=== PATIENT | male | born 1955 | race Caucasian/White ===

== ENCOUNTER 2017-11-07 18:26 | Inpatient (IN) ==
[2017-11-07] MEDS ORDERED: 0.9 % SODIUM CHLORIDE 1,000 ML IV SCH (19:15)
--- NOTE | 2017-11-07 19:31 | XRay Report ---
CLINICAL INFORMATION: Shortness of breath fever and cough COMPARISON: 11/06/2017 FINDINGS: The heart size, mediastinum and pulmonary vessels are unremarkable. The lungs are clear. There are no effusions. The bones and soft tissues are within normal limits. IMPRESSION: Normal chest. Interpreted and Authenticated by: Caleb Marin 11/07/17
[2017-11-07 19:54] LABS: Basophils # (Auto) 0 K/mcL (0.0-0.3); Basophils % (Auto) 0 % (0.0-2.0); Eosinophils # (Auto) 0 K/mcL (0.0-0.7); Eosinophils % (Auto) 0.3 % (0.0-7.0); Granulocytes % (Auto) 90.8 % (38.0-78.0); Lymphocytes # (Auto) 0.4 K/mcL (1.5-4.8); Mean Cell Volume 87.9 fL (80.0-100.0); Mean Corpuscular HGB Conc 33.4 g/dL (31.0-36.0); Mean Corpuscular Hemoglobin 29.3 pg (26.0-34.0); Monocytes # (Auto) 0.8 K/mcL (0.1-0.9); Monocytes % (Auto) 5.9 % (1.0-12.0); Platelet Count 125 K/mcL (140-440); RBC 4.11 M/mcL (4.50-5.90); Red Cell Distribution Width 14.8 % (11.5-14.5)
[2017-11-07 19:59] LABS: Appearance,Urine CLEAR; Bacteria,Urine MANY /hpf (0); Bilirubin,Urine NEG (NEG); Color,Urine AMBER; Glucose,Urine (UA) NEGATIVE (NEG); Leukocyte Esterase,Urine NEG /uL (NEG); Mucus,Urine FEW /hpf (0); Protein,Urine NEG (NEG); Specific Gravity,Urine 1.019 (1.000-1.035); Urine Blood NEG mg/dL (<0.03); Urine Hyaline Cast 6 /lpf (0-2); Urine RBC < 1 /hpf (0-1); Urine Squamous Epithelial Cell 0 /hpf (0-4); Urine WBC 1 /hpf (0-4)
[2017-11-07 20:04] LABS: ALT/SGPT 24 U/l (0-40); Albumin 3.1 gm/dL (3.2-5.2); Albumin/Globulin Ratio 0.8 (1.0-2.3); Alkaline Phosphatase 133 U/L (39-117); Blood Urea Nitrogen 18 mg/dl (8-23); Lipase 89 U/L (7-60)
--- NOTE | 2017-11-07 20:37 | Emergency Department Note ---
Pediatric GI HPI - General Chief Complaint: Abdominal Pain Stated Complaint: Sent my Emilee Romero for infection in abd cavity. Time Seen by Provider: 11/07/17 18:32 Source: patient Mode of arrival: ambulatory Limitations: no limitations - History of Present Illness HPI narrative: Please disregard this note that was entered error and see new note - Related Data Home Medications Medication Instructions Recorded Confirmed Ferrous Gluconate [Iron] 236 mg PO DAILY 02/09/16 02/09/16 Furosemide [Lasix] 40 mg PO DAILY 02/09/16 02/09/16 Glucosamine Sulfate Dipot Chlr 1,000 mg PO 02/09/16 [Glucosamine] Omeprazole [PriLOSEC] 20 mg PO ACB 02/09/16 06/15/17 Propranolol [Inderal] 5 mg PO BID 02/09/16 06/15/17 Thiamine HCl [B-1] 200 mg PO DAILY 02/09/16 06/15/17 aMILoride [Amiloride] 10 mg PO BID 02/09/16 08/10/17 metFORMIN [Glucophage] 750 mg PO ACB 02/09/16 06/15/17 Allergies Allergy/AdvReac Type Severity Reaction Status Date / Time adhesive tape Allergy Severe Blister Verified 11/07/17 14:59 iron Allergy Diarrhea Verified 11/07/17 14:59 Tomato Allergy Numbness Verified 11/07/17 14:59 Pediatric Exam - General Limitations: no limitations Course Vital Signs Temperature 99.3 F H 11/07/17 18:27 Pulse Rate 106 H 11/07/17 18:27 Respiratory Rate 18 11/07/17 18:27 Blood Pressure 143/76 11/07/17 18:27 Pulse Oximetry (%) 95 11/07/17 18:27 Temperature 99.3 F H 11/07/17 18:27 Pulse Rate 106 H 11/07/17 18:27 Respiratory Rate 18 11/07/17 18:27 Blood Pressure 143/76 11/07/17 18:27 Pulse Oximetry (%) 95 11/07/17 18:27 Medical Decision Making - Lab Data Result diagrams: 11/07/17 18:59 11/07/17 18:59 Lab Results 11/07/17 11/07/17 11/07/17 Range/Units 18:47 18:59 18:59 WBC 12.9 H (4.5-11.0) K/mcL RBC 4.11 L (4.50-5.90) M/mcL Hgb 12.1 L (13.5-16.5) g/dL Hct 36.2 L (41.0-55.0) % MCV 87.9 (80.0-100.0) fL MCH 29.3 (26.0-34.0) pg MCHC 33.4 (31.0-36.0) g/dL RDW 14.8 H (11.5-14.5) % Plt Count 125 L (140-440) K/mcL MPV 9.4 (7.4-10.4) fL Gran % 90.8 H (38.0-78.0) % Lymph % (Auto) 3.0 L (15.5-49.0) % [place] % (Auto) 5.9 (1.0-12.0) % Eos % (Auto) 0.3 (0.0-7.0) % Baso % (Auto) 0 (0.0-2.0) % Gran # 11.7 H (1.8-8.0) K/mcL Lymph # (Auto) 0.4 L (1.5-4.8) K/mcL [place] # (Auto) 0.8 (0.1-0.9) K/mcL Eos # (Auto) 0 (0.0-0.7) K/mcL Baso # (Auto) 0 (0.0-0.3) K/mcL VBG Lactic Acid 2.3 H (0.5-2.2) mmol/L Sodium 126 L (133-145) mmol/L Potassium 4.5 (3.3-5.1) mmol/L Chloride 92 L (96-108) mmol/L Carbon Dioxide 18 L (22-30) mmol/L Anion Gap 16.0 (8-16) BUN 18 (8-23) mg/dl Creatinine 1.0 (0.7-1.2) mg/dl GFR Calculation 79 Glucose 112 H (70-105) mg/dL Calcium 8.2 L (8.6-10.4) mg/dl Total Bilirubin 2.0 H (0.0-1.0) mg/dL AST 36 (0-37) U/l ALT 24 (0-40) U/l Alkaline Phosphatase 133 H (39-117) U/L Total Protein 7.1 (5.9-8.4) gm/dL Albumin 3.1 L (3.2-5.2) gm/dL Globulin 4.0 H (2.2-3.7) gm/dL Albumin/Globulin Ratio 0.8 L (1.0-2.3) Lipase 89 H (7-60) U/L Urine Color Urine Appearance Urine pH Ur Specific [place] Urine Protein Urine Glucose (UA) Urine Ketones Urine Occult Blood Urine Nitrate Urine Bilirubin Urine Urobilinogen Ur Leukocyte Esterase Urine RBC (0-1) /hpf Urine WBC (0-4) /hpf Ur Squamous Epith Cells (0-4) /hpf Urine Bacteria (0) /hpf Hyaline Casts (0-2) /lpf Urine Mucus (0) /hpf Ur Culture Indicated? 11/07/17 11/07/17 Range/Units 19:07 19:07 WBC (4.5-11.0) K/mcL RBC (4.50-5.90) M/mcL Hgb (13.5-16.5) g/dL Hct (41.0-55.0) % MCV (80.0-100.0) fL MCH (26.0-34.0) pg MCHC (31.0-36.0) g/dL RDW (11.5-14.5) % Plt Count (140-440) K/mcL MPV (7.4-10.4) fL Gran % (38.0-78.0) % Lymph % (Auto) (15.5-49.0) % [place] % (Auto) (1.0-12.0) % Eos % (Auto) (0.0-7.0) % Baso % (Auto) (0.0-2.0) % Gran # (1.8-8.0) K/mcL Lymph # (Auto) (1.5-4.8) K/mcL [place] # (Auto) (0.1-0.9) K/mcL Eos # (Auto) (0.0-0.7) K/mcL Baso # (Auto) (0.0-0.3) K/mcL VBG Lactic Acid (0.5-2.2) mmol/L Sodium (133-145) mmol/L Potassium (3.3-5.1) mmol/L Chloride (96-108) mmol/L Carbon Dioxide (22-30) mmol/L Anion Gap (8-16) BUN (8-23) mg/dl Creatinine (0.7-1.2) mg/dl GFR Calculation Glucose (70-105) mg/dL Calcium (8.6-10.4) mg/dl Total Bilirubin (0.0-1.0) mg/dL AST (0-37) U/l ALT (0-40) U/l Alkaline Phosphatase (39-117) U/L Total Protein (5.9-8.4) gm/dL Albumin (3.2-5.2) gm/dL Globulin (2.2-3.7) gm/dL Albumin/Globulin Ratio (1.0-2.3) Lipase (7-60) U/L Urine Color TNP Lorie Urine Appearance TNP Clear Urine pH TNP 5.0 Ur Specific [place] TNP 1.019 Urine Protein TNP Neg Urine Glucose (UA) TNP Negative Urine Ketones TNP Neg Urine Occult Blood TNP Neg Urine Nitrate TNP Neg Urine Bilirubin TNP Neg Urine Urobilinogen TNP 4.0 A Ur Leukocyte Esterase TNP Neg Urine RBC < 1 (0-1) /hpf Urine WBC 1 (0-4) /hpf Ur Squamous Epith Cells 0 (0-4) /hpf Urine Bacteria Many A (0) /hpf Hyaline Casts 6 H (0-2) /lpf Urine Mucus Few (0) /hpf Ur Culture Indicated? Yes Disposition Pt seen by LINSEED OIL PRESS TENDER/PA only: No Clinical Impression: Peritonitis (acute) generalized Condition: Fair Referrals: Hang Patterson MD [Primary Care Provider] - Katherine Romero ARNP [Nurse Practitioner] -
[2017-11-07] MEDS ORDERED: cefTRIAXone 2 GM VIAL IV ONE (20:48)
--- NOTE | 2017-11-07 20:48 | Emergency Department Note ---
Abdominal Pain HPI - General Chief Complaint: Abdominal Pain Stated Complaint: Sent my Emilee Romero for infection in abd cavity. Time Seen by Provider: 11/07/17 18:32 Source: patient Mode of arrival: ambulatory Limitations: no limitations - History of Present Illness HPI Narrative: 62-year-old male presents with abdominal pain and fever. He was sent by Katherine Romero's office for probable peritonitis. About a week ago he had a paracentesis and had fluid drawn off. States last , about 6 days ago he started developing abdominal pain and a fever. Fever as high as 102 at home. He went and saw Katherine Romero today and they did another paracentesis and the fluid was cloudy. He has had a fever at that time. Culture and sensitivity are pending and that was verified with lab. States that he has had a nonproductive cough since last . States he has some mild shortness of breath which she frequently has. That is nothing new. He has had some intermittent nausea over the last few days. No vomiting or diarrhea. No rash. Associated symptoms: Reports: nausea, diarrhea, chills. Denies: vomiting, constipation, dysuria, hematuria, anorexia, syncope - Related Data Home Medications Medication Instructions Recorded Confirmed Ferrous Gluconate [Iron] 236 mg PO DAILY 02/09/16 02/09/16 Furosemide [Lasix] 40 mg PO DAILY 02/09/16 02/09/16 Glucosamine Sulfate Dipot Chlr 1,000 mg PO 02/09/16 [Glucosamine] Omeprazole [PriLOSEC] 20 mg PO ACB 02/09/16 06/15/17 Propranolol [Inderal] 5 mg PO BID 02/09/16 06/15/17 Thiamine HCl [B-1] 200 mg PO DAILY 02/09/16 06/15/17 aMILoride [Amiloride] 10 mg PO BID 02/09/16 08/10/17 metFORMIN [Glucophage] 750 mg PO ACB 02/09/16 06/15/17 Allergies Allergy/AdvReac Type Severity Reaction Status Date / Time adhesive tape Allergy Severe Blister Verified 11/07/17 14:59 iron Allergy Diarrhea Verified 11/07/17 14:59 Tomato Allergy Numbness Verified 11/07/17 14:59 Review of Systems All systems ED: reviewed and negative except as stated. Abdominal Pain PMH - Past Medical History PMFSH Narrative: Medical History Peritonitis (acute) generalized (Acute) Medical history: Reports: DM (II), GERD, other (cirrhosis liver, Liver Cancer, hx of alcoholism (quit 3.5 years ago)) Surgical history ED: Reports: other (knee sx, shoulder sx) - Social History Smoking status: Never smoker Alcohol use: Reports: None Drug use: Reports: none Physical Exam Limitations: no limitations General appearance: alert, in no apparent distress Head: atraumatic, normocephalic, normal inspection Eye: Present: normal appearance. Absent: conjunctival injection ENT: normal exam, normal oropharynx, mucous membranes moist, TM's normal bilaterally, normal external ear exam Neck: Present: normal inspection, trachea midline. Absent: tenderness, meningismus Chest: Present: normal inspection, symmetric chest wall rise Respiratory: Absent: normal lung sounds bilaterally, respiratory distress, wheezes, stridor, accessory muscle use Cardiovascular: Present: regular rate, normal heart sounds Abdominal: Present: soft, distention (Mild), tenderness (mild diffuse), normal bowel sounds. Absent: mass Extremities: Present: normal inspection. Absent: pedal edema Neurological: Present: alert, oriented X3 Psychiatric: Present: normal affect, normal mood Skin: Present: warm, dry, intact, normal color. Absent: rash, diaphoresis Course Course Narrative: @ 2044 spoke with hospitalist, Dr. Kan, who agrees to see and admit patient. Vital Signs Temperature 99.3 F H 11/07/17 18:27 Pulse Rate 106 H 11/07/17 18:27 Respiratory Rate 18 11/07/17 18:27 Blood Pressure 143/76 11/07/17 18:27 Pulse Oximetry (%) 95 11/07/17 18:27 Temperature 99.3 F H 11/07/17 18:27 Pulse Rate 106 H 11/07/17 18:27 Respiratory Rate 18 11/07/17 18:27 Blood Pressure 143/76 11/07/17 18:27 Pulse Oximetry (%) 95 11/07/17 18:27 Abdominal Pain - Lab Data Lab results reviewed: Yes I reviewed the patient's lab results. Result diagrams: 11/07/17 18:59 11/07/17 18:59 Lab Results 11/07/17 11/07/17 11/07/17 Range/Units 18:47 18:59 18:59 WBC 12.9 H (4.5-11.0) K/mcL RBC 4.11 L (4.50-5.90) M/mcL Hgb 12.1 L (13.5-16.5) g/dL Hct 36.2 L (41.0-55.0) % MCV 87.9 (80.0-100.0) fL MCH 29.3 (26.0-34.0) pg MCHC 33.4 (31.0-36.0) g/dL RDW 14.8 H (11.5-14.5) % Plt Count 125 L (140-440) K/mcL MPV 9.4 (7.4-10.4) fL Gran % 90.8 H (38.0-78.0) % Lymph % (Auto) 3.0 L (15.5-49.0) % [place] % (Auto) 5.9 (1.0-12.0) % Eos % (Auto) 0.3 (0.0-7.0) % Baso % (Auto) 0 (0.0-2.0) % Gran # 11.7 H (1.8-8.0) K/mcL Lymph # (Auto) 0.4 L (1.5-4.8) K/mcL [place] # (Auto) 0.8 (0.1-0.9) K/mcL Eos # (Auto) 0 (0.0-0.7) K/mcL Baso # (Auto) 0 (0.0-0.3) K/mcL VBG Lactic Acid 2.3 H (0.5-2.2) mmol/L Sodium 126 L (133-145) mmol/L Potassium 4.5 (3.3-5.1) mmol/L Chloride 92 L (96-108) mmol/L Carbon Dioxide 18 L (22-30) mmol/L Anion Gap 16.0 (8-16) BUN 18 (8-23) mg/dl Creatinine 1.0 (0.7-1.2) mg/dl GFR Calculation 79 Glucose 112 H (70-105) mg/dL Calcium 8.2 L (8.6-10.4) mg/dl Total Bilirubin 2.0 H (0.0-1.0) mg/dL AST 36 (0-37) U/l ALT 24 (0-40) U/l Alkaline Phosphatase 133 H (39-117) U/L Total Protein 7.1 (5.9-8.4) gm/dL Albumin 3.1 L (3.2-5.2) gm/dL Globulin 4.0 H (2.2-3.7) gm/dL Albumin/Globulin Ratio 0.8 L (1.0-2.3) Lipase 89 H (7-60) U/L Urine Color Urine Appearance Urine pH Ur Specific [place] Urine Protein Urine Glucose (UA) Urine Ketones Urine Occult Blood Urine Nitrate Urine Bilirubin Urine Urobilinogen Ur Leukocyte Esterase Urine RBC (0-1) /hpf Urine WBC (0-4) /hpf Ur Squamous Epith Cells (0-4) /hpf Urine Bacteria (0) /hpf Hyaline Casts (0-2) /lpf Urine Mucus (0) /hpf Ur Culture Indicated? 11/07/17 11/07/17 Range/Units 19:07 19:07 WBC (4.5-11.0) K/mcL RBC (4.50-5.90) M/mcL Hgb (13.5-16.5) g/dL Hct (41.0-55.0) % MCV (80.0-100.0) fL MCH (26.0-34.0) pg MCHC (31.0-36.0) g/dL RDW (11.5-14.5) % Plt Count (140-440) K/mcL MPV (7.4-10.4) fL Gran % (38.0-78.0) % Lymph % (Auto) (15.5-49.0) % [place] % (Auto) (1.0-12.0) % Eos % (Auto) (0.0-7.0) % Baso % (Auto) (0.0-2.0) % Gran # (1.8-8.0) K/mcL Lymph # (Auto) (1.5-4.8) K/mcL [place] # (Auto) (0.1-0.9) K/mcL Eos # (Auto) (0.0-0.7) K/mcL Baso # (Auto) (0.0-0.3) K/mcL VBG Lactic Acid (0.5-2.2) mmol/L Sodium (133-145) mmol/L Potassium (3.3-5.1) mmol/L Chloride (96-108) mmol/L Carbon Dioxide (22-30) mmol/L Anion Gap (8-16) BUN (8-23) mg/dl Creatinine (0.7-1.2) mg/dl GFR Calculation Glucose (70-105) mg/dL Calcium (8.6-10.4) mg/dl Total Bilirubin (0.0-1.0) mg/dL AST (0-37) U/l ALT (0-40) U/l Alkaline Phosphatase (39-117) U/L Total Protein (5.9-8.4) gm/dL Albumin (3.2-5.2) gm/dL Globulin (2.2-3.7) gm/dL Albumin/Globulin Ratio (1.0-2.3) Lipase (7-60) U/L Urine Color TNP Lorie Urine Appearance TNP Clear Urine pH TNP 5.0 Ur Specific [place] TNP 1.019 Urine Protein TNP Neg Urine Glucose (UA) TNP Negative Urine Ketones TNP Neg Urine Occult Blood TNP Neg Urine Nitrate TNP Neg Urine Bilirubin TNP Neg Urine Urobilinogen TNP 4.0 A Ur Leukocyte Esterase TNP Neg Urine RBC < 1 (0-1) /hpf Urine WBC 1 (0-4) /hpf Ur Squamous Epith Cells 0 (0-4) /hpf Urine Bacteria Many A (0) /hpf Hyaline Casts 6 H (0-2) /lpf Urine Mucus Few (0) /hpf Ur Culture Indicated? Yes - Radiology Data Radiology results reviewed: Yes I reviewed the patient's radiology results. Disposition Pt seen by BREAKER MACHINE OPERATOR/PA only: No Clinical Impression: Peritonitis (acute) generalized, Hyponatremia Disposition: Xfer As Inpt ([facility]) Condition: Fair Referrals: Katherine Romero ARNP [Nurse Practitioner] - Hang Patterson MD [Primary Care Provider] - Time of Disposition: 21:00
--- NOTE | 2017-11-07 21:41 | Internal Med History&Physical ---
Medical - H&P: [facility] Patient information: Note initiated : 11/07/17 at 9:38 pm Service Date, if different from initiated Date: [] Patient: Grant Perea 62 y/o M admitted on for Sent my Emilee Shipmanman for infection in abd cavity.. Chief Complaint: [] History of present illness: Mr. Perea is a 62 year old Male with h/o cirrhosis ,presents to the ER from [facility]. The patient has not been feeling well since last , pain in the abdomen lower abdomen, sharp, initially intermittent, then later constant and intermittent, progressively getting worse, somewhat better with drinking soda? no other reliving factors. He admits to poor appetite and nausea during these symptoms. The patient was seen by his GI doc, and a CT scan of the abdomen was done, which showed ascitis, the patient underwent a USG guided paracentesis today which showed SBP, and the patient was sent to the ER for further evaluation. The patient denies any other complaints, he does not have afrequent ascitic taps and notes that his fluid is well controleld with diet and diuretics. The patient in the ER had WBC of 12.9, sodium 126, lact 2.3, t eveline 2.0, the patient Total neutrophil count was [id number], the patient was therefore admitted to the hospital for further management. IV rocephin given in the ER. Blood and urine cx sent, since CT Abdomen was done yesterday, usg abdomen today, repeat imaging not done, CXR chest is neg. All systems: reviewed and no additional remarkable complaints except as stated ( as per HPI) Medical - H&P: PMH Medical history: Medical History Peritonitis (acute) generalized (Acute) Hyponatremia (Acute) cirrhosis liver cancer dm Surgical history: shoulder surgery in the past. Pertinent family history: father with DM, Cardiac issues, all male members seem to have DM Social history: lives with , retired non etoh now for 3.5 yrs, was heavy etoh user then smoker ex 13-15 pack yr Denies drug use. Medical - H&P: Meds Home Medications Medication Instructions Recorded Confirmed Type Ferrous Gluconate [Iron] 236 mg PO DAILY 02/09/16 02/09/16 History Furosemide [Lasix] 40 mg PO DAILY 02/09/16 02/09/16 History Glucosamine Sulfate Dipot Chlr 1,000 mg PO 02/09/16 History [Glucosamine] Omeprazole [PriLOSEC] 20 mg PO ACB 02/09/16 06/15/17 History Propranolol [Inderal] 5 mg PO BID 02/09/16 06/15/17 History Thiamine HCl [B-1] 200 mg PO DAILY 02/09/16 06/15/17 History aMILoride [Amiloride] 10 mg PO BID 02/09/16 08/10/17 History metFORMIN [Glucophage] 750 mg PO ACB 02/09/16 06/15/17 History Allergies Allergy/AdvReac Type Severity Reaction Status Date / Time adhesive tape Allergy Severe Blister Verified 11/07/17 14:59 iron Allergy Diarrhea Verified 11/07/17 14:59 Tomato Allergy Numbness Verified 11/07/17 14:59 Medical - H&P: Exam - Constitutional Vitals: Temp Pulse Resp BP Pulse Ox 99.3 F H 95 H 18 118/61 96 11/07/17 18:27 11/07/17 21:01 11/07/17 18:27 11/07/17 21:01 11/07/17 21:01 Exam: GENERAL: The patient is a well-developed, well-nourished in no apparent distress. Is alert and oriented x3. febrile VITAL SIGNS: Reviewed and as noted elsewhere. HEENT: Head is normocephalic and atraumatic. Extraocular muscles are intact. Pupils are equal, round, and reactive to light. Nares appeared normal. Mouth appears any without lesions. Mucous membranes are moist. NECK: Normal to inspection, Supple, No lymphadenopathy or thyromegaly. LUNGS: Air entry equal on both sides, no wheezing, crackles or rhonchi noted. No accessory muscles of respiration HEART: Regular rate and rhythm normal, S1 and S2 heard, no Gallop, S3 or Rub Noted, No Gross murmur heard. ABDOMEN: Soft, patch on the rlq from ascitic tap, some tendernes in hypogastric region, distended abvdomen with flank fullness, unbilical hernia Positive bowel sounds. EXTREMITIES: No cyanosis, clubbing, rash, lesions or edema. NEUROLOGIC: Cranial nerves II through XII are grossly intact. Motor and Sensory System Grossly Intact PSYCHIATRIC: flat affect, slow speech, poor eye contact. Denies SI or HI SKIN: No ulceration or wounds noted, No jaundice, No rash noted. Medical - H&P: Reslt - Labs CBC & Chem 7: 11/07/17 18:59 11/07/17 18:59 Labs: Short CBC 11/07/17 Range/Units 18:59 WBC 12.9 H (4.5-11.0) K/mcL Hgb 12.1 L (13.5-16.5) g/dL Hct 36.2 L (41.0-55.0) % Plt Count 125 L (140-440) K/mcL BMP 11/07/17 18:59 Sodium 126 L Potassium 4.5 Chloride 92 L Carbon Dioxide 18 L BUN 18 Creatinine 1.0 Glucose 112 H Calcium 8.2 L Liver Function 11/07/17 Range/Units 18:59 Total Bilirubin 2.0 H (0.0-1.0) mg/dL AST 36 (0-37) U/l ALT 24 (0-40) U/l Alkaline Phosphatase 133 H (39-117) U/L Albumin 3.1 L (3.2-5.2) gm/dL Urine 11/07/17 11/07/17 Range/Units 19:07 19:07 Urine Color TNP Lorie Urine Appearance TNP Clear Urine pH TNP 5.0 Ur Specific [place] TNP 1.019 Urine Protein TNP Neg Urine Glucose (UA) TNP Negative Medical - H&P: A/P - Narrative A/P Narrative: A/P spontaneous bacterial peritonitis: IV rocepin for now, cefotaxime not available in the hospital. 2gms q24hrs for now, total 5-7 days of abx planned. follow culture results. sepsis: due to above, lactic acid is 2.3, IVFluids for now, monitor and trend labs, bp is stable, hold beta blockers. Cirrhosis: Alcoholic cirrhosis, managed well by meds for now, monitor. does not dring etoh any more, now that he has HCC, may be a candidate for liver transplant, will see if this has been discussed with him Depression: agrees to being drepressed, but does not want any medications. DM: Hold / stop metformin, sliding scale insulin for now, alternative agent will need to be considered given he has cirrhosis. dvt hep sq diet regular full code.
[2017-11-07] MEDS ORDERED: NALOXONE HCL 0.4 MG/ML VIAL IV PRN (22:15)
[2017-11-07] MEDS ORDERED: HYDROmorphone 2 MG/ML VIAL IV PRN (22:15)
[2017-11-07] MEDS ORDERED: ACETAMINOPHEN 325 MG TABLET PO PRN (22:15)
[2017-11-07] MEDS ORDERED: ALBUTEROL SULFATE 2.5 MG/3 ML NEBULIZER NEB PRN (22:15)
[2017-11-07] MEDS: 0.9 % SODIUM CHLORIDE 1,000 ML IV SCH (22:27)
[2017-11-07] MEDS: 0.9 % SODIUM CHLORIDE 10 ML SYRINGE IV SCH (22:28)
[2017-11-07] MEDS: HEPARIN 5,000 UNIT/ML VIAL SQ SCH (23:04)
--- NOTE | 2017-11-08 01:30 | Emergency Department Note ---
ED Note Addendum Note Addendum: I saw this patient with Estefani MONTALVO. I agree with her evaluation, assessment, treatment and documentation. I also briefly discussed the patient with Dr. Lu prior to admittance
[2017-11-08] MEDS: 0.9 % SODIUM CHLORIDE 10 ML SYRINGE IV SCH ×3 (05:46→20:29)
[2017-11-08 05:58] LABS: Basophils # (Auto) 0 K/mcL (0.0-0.3); Basophils % (Auto) 0.1 % (0.0-2.0); Eosinophils # (Auto) 0 K/mcL (0.0-0.7); Eosinophils % (Auto) 0.1 % (0.0-7.0); Granulocytes % (Auto) 85.2 % (38.0-78.0); Lymphocytes # (Auto) 0.4 K/mcL (1.5-4.8); Mean Cell Volume 88.7 fL (80.0-100.0); Mean Corpuscular HGB Conc 33.7 g/dL (31.0-36.0); Mean Corpuscular Hemoglobin 29.9 pg (26.0-34.0); Monocytes % (Auto) 10.6 % (1.0-12.0); Platelet Count 90 K/mcL (140-440); RBC 3.58 M/mcL (4.50-5.90); Red Cell Distribution Width 14.4 % (11.5-14.5)
[2017-11-08 06:11] LABS: ALT/SGPT 20 U/l (0-40); Albumin 2.7 gm/dL (3.2-5.2); Albumin/Globulin Ratio 0.8 (1.0-2.3); Alkaline Phosphatase 128 U/L (39-117); Bilirubin,Direct 0.6 mg/dL (0.0-0.3); Blood Urea Nitrogen 15 mg/dl (8-23); Gamma Glutamyl Transpeptidase 62 U/L (8-61); Uric Acid 5.4 mg/dL (2.5-8.0)
[2017-11-08] MEDS: PANTOPRAZOLE 40 MG TABLET PO SCH (07:02)
[2017-11-08] MEDS: 0.9 % SODIUM CHLORIDE 1,000 ML IV SCH ×2 (08:50→19:19)
[2017-11-08] MEDS ORDERED: aMILoride 5 MG TABLET PO SCH (09:00)
[2017-11-08] MEDS ORDERED: FUROSEMIDE 40 MG TABLET PO SCH (09:00)
[2017-11-08] MEDS: cefTRIAXone 2 GM VIAL IV SCH (09:57)
[2017-11-08] MEDS: FERROUS GLUCONATE 324 MG TABLET PO SCH (09:59)
[2017-11-08] MEDS: THIAMINE 100 MG TABLET PO SCH (09:59)
[2017-11-08] MEDS: GLUCOSAMINE/CHONDROITIN SULF A 1 CAP CAPSULE PO SCH (10:00)
[2017-11-08] MEDS: DOCUSATE SODIUM 100 MG CAPSULE PO SCH ×2 (10:00→20:29)
[2017-11-08] MEDS: HEPARIN 5,000 UNIT/ML VIAL SQ SCH ×2 (10:01→20:25)
[2017-11-08] MEDS ORDERED: ONDANSETRON 4 MG/2 ML VIAL IV PRN (13:24)
--- NOTE | 2017-11-08 14:07 | Internal Med Progress Note ---
Medical - PN: Subj Patient information: Note initiated : 11/08/17 at 2:05 pm Service Date, if different from initiated Date: [] Patient: Grant Perea 62 y/o M admitted on 11/07/17 for Spontaneous Bacterial Peritonitis, Sepsis. Chief Complaint: [] Interval history: Mr. Perea is a 62 year old Male with h/o cirrhosis ,presents to the ER from [facility]. The patient has not been feeling well since last , pain in the abdomen lower abdomen, sharp, initially intermittent, then later constant and intermittent, progressively getting worse, somewhat better with drinking soda? no other reliving factors. He admits to poor appetite and nausea during these symptoms. The patient was seen by his GI doc, and a CT scan of the abdomen was done, which showed ascitis, the patient underwent a USG guided paracentesis today which showed SBP, and the patient was sent to the ER for further evaluation. The patient denies any other complaints, he does not have afrequent ascitic taps and notes that his fluid is well controleld with diet and diuretics. The patient in the ER had WBC of 12.9, sodium 126, lact 2.3, t eveline 2.0, the patient Total neutrophil count was 5388, the patient was therefore admitted to the hospital for further management. IV rocephin given in the ER. Blood and urine cx sent, since CT Abdomen was done yesterday, usg abdomen today, repeat imaging not done, CXR chest is neg. nov 08 Patient seen examined, no acute overnight issues, patient feeling much better, able to eat breakfast, labs better, microbiology pending, by bedside, all questions answered. Pertinent ROS: Denies headache, dizziness Denies chest pain, palpitations Denies cough or shortness of breath Denies abdominal pain, nausea or vomiting. - Constitutional Vitals: Vital Signs Temp Pulse Resp BP Pulse Ox 97.3 F 80 16 110/64 94 11/08/17 12:00 11/08/17 04:00 11/08/17 12:00 11/08/17 12:00 11/08/17 12:00 Period Temp Pulse Resp BP Sys/Rasmussen Pulse Ox Last 24 Hr 97.3 F-99.3 F 80-106 16- 94-143/53-76 92-96 Intake and Output 11/08/17 11/08/17 11/08/17 05:59 13:59 21:59 Intake Total 1250 / 1250 1240 / 1240 Output Total 725 / 725 175 / 175 Balance 525 / 525 1065 / 1065 Weight 226 lb 8 oz 226 lb 8 oz Patient Weight 11/09/17 05:59 Weight 226 lb 8 oz Intake & Output: Intake & Output 11/08/17 11/08/17 11/08/17 05:59 13:59 21:59 Intake Total 1250 / 1250 1240 / 1240 Output Total 725 / 725 175 / 175 Balance 525 / 525 1065 / 1065 Weight 226 lb 8 oz 226 lb 8 oz Intake: IV 1000 / 1000 1000 / 1000 Sodium Chloride 0.9% 1,000 ml @ 1000 / 1000 1000 / 1000 100 mls/hr IV .Q10H [facility] Rx#: [id number] Oral 250 / 250 240 / 240 Output: Void Amount 725 / 725 175 / 175 Other: Meal Breakfast Percent of Meal Consumed 100% Feeding Ability Assist with Tray Set Up # Voids 1 Exam: Constitutional; Afebrile, cooperative, alert, not in distress. Eyes- No icterus, , No periorbital swelling Ears- Ext ear normal, hearing normal to conversation. Neck- Midline trachea, supple Respiratory system: Air Entry equal on both sides, No crackles or wheezing, no rhonchi. CVS- Rate rhythm regular, S1,S2 heard, no gallop, no rub. Abdomen- Soft nontender abdomen, no organomegaly, no tenderness, no guarding or rigidity, SESSIONS CLERK- AOOx3, moving all extremities, no gross focal deficit noted. Medical - PN: Obj Da - Labs CBC & Chem 7: 11/08/17 04:25 11/08/17 04:25 Labs: Abnormal Lab Results 11/08/17 11/08/17 11/08/17 04:25 04:25 04:25 WBC RBC 3.58 L Hgb 10.7 L Hct 31.8 L RDW Plt Count 90 L Gran % 85.2 H Lymph % (Auto) 4.0 L Gran # 8.3 H Lymph # (Auto) 0.4 L [place] # (Auto) 1.0 H PT 18.0 H INR 1.4 H VBG Lactic Acid Sodium 131 L Chloride Carbon Dioxide 20 L Glucose 130 H Calcium 7.8 L Total Bilirubin 1.4 H Direct Bilirubin 0.6 H GGT 62 H Alkaline Phosphatase 128 H Albumin 2.7 L Globulin Albumin/Globulin Ratio 0.8 L Lipase Urine Urobilinogen Urine Bacteria Hyaline Casts 11/07/17 11/07/17 11/07/17 19:07 18:59 18:59 WBC 12.9 H RBC 4.11 L Hgb 12.1 L Hct 36.2 L RDW 14.8 H Plt Count 125 L Gran % 90.8 H Lymph % (Auto) 3.0 L Gran # 11.7 H Lymph # (Auto) 0.4 L [place] # (Auto) PT INR VBG Lactic Acid Sodium 126 L Chloride 92 L Carbon Dioxide 18 L Glucose 112 H Calcium 8.2 L Total Bilirubin 2.0 H Direct Bilirubin GGT Alkaline Phosphatase 133 H Albumin 3.1 L Globulin 4.0 H Albumin/Globulin Ratio 0.8 L Lipase 89 H Urine Urobilinogen 4.0 A Urine Bacteria Many A Hyaline Casts 6 H 11/07/17 18:47 WBC RBC Hgb Hct RDW Plt Count Gran % Lymph % (Auto) Gran # Lymph # (Auto) [place] # (Auto) PT INR VBG Lactic Acid 2.3 H Sodium Chloride Carbon Dioxide Glucose Calcium Total Bilirubin Direct Bilirubin GGT Alkaline Phosphatase Albumin Globulin Albumin/Globulin Ratio Lipase Urine Urobilinogen Urine Bacteria Hyaline Casts Meds: Medications Acetaminophen (Tylenol) 500 mg PO Q8HP PRN PRN Reason: PAIN/FEVER > 101 Albuterol Sulfate (Ventolin) 2.5 mg NEB Q2HP PRN PRN Reason: Shortness Of Breath Amiloride HCl (Amiloride) 10 mg PO BID [facility] Ceftriaxone Sodium (Rocephin) 2 gm IV Q24H [facility] Last Admin: 11/08/17 09:57 Dose: 2 gm Docusate Sodium (Colace) 100 mg PO BID [facility] Last Admin: 11/08/17 10:00 Dose: Not Given Ferrous Gluconate (Fergon) 324 mg PO [facility] Last Admin: 11/08/17 09:59 Dose: 324 mg Furosemide (Lasix) 40 mg PO DAILY [facility] Glucosamine/Chondroitin (Glucosamine-Chondroitin Cap) 1 cap PO DAILY [facility] Last Admin: 11/08/17 10:00 Dose: 1 cap Heparin Sodium (Porcine) (Heparin) 5,000 unit SQ Q12 [facility] Last Admin: 11/08/17 10:01 Dose: 5,000 unit Hydromorphone HCl (Dilaudid) 0.5 mg IV Q2HP PRN PRN Reason: PAIN LEVEL > 6 Sodium Chloride (Sodium Chloride 0.9%) 1,000 mls @ 100 mls/hr IV .Q10H [facility] Stop: 11/09/17 04:14 Last Admin: 11/08/17 08:50 Dose: 100 mls/hr Naloxone HCl (Narcan) 0.1 mg IV Q2MIN PRN PRN Reason: Opiate Reversal Ondansetron HCl (Zofran) 4 mg IV Q4HP PRN PRN Reason: Nausea And Vomiting Last Admin: 11/08/17 13:34 Dose: 4 mg Pantoprazole Sodium (Protonix) 40 mg PO QAMAC [facility] Last Admin: 11/08/17 07:02 Dose: 40 mg Sodium Chloride (Saline Flush) 10 ml IV Q8 [facility] Last Admin: 11/08/17 13:35 Dose: Not Given Thiamine HCl (Vitamin B1) 200 mg PO DAILY [facility] Last Admin: 11/08/17 09:59 Dose: 200 mg Medical - PN: A/P - Time Spent With Patient Total time spent is greater than 50% in coordination of care (as documented) at patient's floor/unit and/or counseling patient: - Narrative A/P Narrative: A/P Spontaneous bacterial peritonitis: IV rocepin for now, cefotaxime not available in the hospital. 2gms q24hrs for now, total 5-7 days of abx planned. follow culture results. sepsis: improving, wbc normal, now, lactic acidosis resolved, continue to treat underlying condition. Cirrhosis: Alcoholic cirrhosis, managed well by meds for now, monitor. does not drink etoh any more, now that he has HCC, may be a candidate for liver transplant. Depression: agrees to being depressed, but does not want any medications. DM: Hold / stop metformin, sliding scale insulin for now, alternative agent will need to be considered given he has cirrhosis. dvt hep sq diet regular full code. Medical - PN: Qual - VTE Deep Vein Thrombosis/Pulmonary Embolism Present on Admission: No
--- NOTE | 2017-11-08 17:18 | Internal Med Progress Note ---
Medical - PN: Subj Patient information: Note initiated : 11/08/17 at 5:15 pm Service Date, if different from initiated Date: [] Patient: Grant Perea a 62 y/o M now sober ETOH cirrhotic with portal hypertension, ascites, and slow growing HCC who admitted on 11/07/17 for Spontaneous Bacterial Peritonitis, Sepsis. Chief Complaint: [] Pt was seen in office 11/06 with abdominal pain and cough that prevented him from traveling for appointment with repair electric motor assembler Dr. Da Silva and interventional radiologist Dr. Andersen at [facility]. Outpatient CT was undertaken which revealed jejunitis, but ascites was seen. Paracentesis was done and fluid was hazy with 5300 nucleated cells 51% neutrophils. He was admitted with SBP and started on rocephin 11/07. Leukocytosis has improved and he is afebrile, but is complaining of nausea and abdominal pain. He is having recurrent ascites today. Notably, previous hepatology notes mention Grant has not been interested in liver transplant, but patient and now state he is. I am not sure if his HCC meets transplant criteria and will clarify this with Dr. Da Silva tomorrow. Pertinent ROS: see hpi - Constitutional Vitals: Vital Signs Temp Pulse Resp BP Pulse Ox 97.3 F 80 16 128/74 93 11/08/17 15:50 11/08/17 04:00 11/08/17 15:50 11/08/17 15:50 11/08/17 15:50 Period Temp Pulse Resp BP Sys/Rasmussen Pulse Ox Last 24 Hr 97.3 F-99.3 F 80-106 16-24 94-143/53-76 92-96 Intake and Output 11/08/17 11/08/17 11/08/17 05:59 13:59 21:59 Intake Total 1250 / 1250 1240 / 1240 Output Total 725 / 725 175 / 175 Balance 525 / 525 1065 / 1065 Weight 226 lb 8 oz 226 lb 8 oz Patient Weight 11/09/17 05:59 Weight 226 lb 8 oz Intake & Output: Intake & Output 11/08/17 11/08/17 11/08/17 05:59 13:59 21:59 Intake Total 1250 / 1250 1240 / 1240 Output Total 725 / 725 175 / 175 Balance 525 / 525 1065 / 1065 Weight 226 lb 8 oz 226 lb 8 oz Intake: IV 1000 / 1000 1000 / 1000 Sodium Chloride 0.9% 1,000 ml @ 1000 / 1000 1000 / 1000 100 mls/hr IV .Q10H [facility] Rx#: [id number] Oral 250 / 250 240 / 240 Output: Void Amount 725 / 725 175 / 175 Other: Meal Breakfast Percent of Meal Consumed 100% Feeding Ability Assist with Tray Set Up # Voids 1 General appearance: average body habitus, cooperative Exam: Flat affect with poor eye contact - Head Head exam: Present: atraumatic, normal inspection - Respiratory Respiratory exam: Present: normal respiratory exam - Cardiovascular Cardiovascular exam: Present: normal rate and rhythm. Absent: gallop, systolic murmur - GI/Abdominal GI/Abdominal exam: Present: normal bowel sounds, distended, hernia Additional comments: Reducible large umbilical hernia. TEnse ascites. Generalized abdominal tenderness. - Extremities Exam Extremities exam: Present: normal inspection, Foot pink and warm. Absent: pedal edema - Psychiatric Psychiatric exam: Present: depressed, flat affect Medical - PN: Obj Da - Labs CBC & Chem 7: 11/08/17 04:25 11/08/17 04:25 Labs: Abnormal Lab Results 11/08/17 11/08/17 11/08/17 04:25 04:25 04:25 WBC RBC 3.58 L Hgb 10.7 L Hct 31.8 L RDW Plt Count 90 L Gran % 85.2 H Lymph % (Auto) 4.0 L Gran # 8.3 H Lymph # (Auto) 0.[address] [facility] # (Auto) 1.0 H PT 18.0 H INR 1.4 H VBG Lactic Acid Sodium 131 L Chloride Carbon Dioxide 20 L Glucose 130 H Calcium 7.8 L Total Bilirubin 1.4 H Direct Bilirubin 0.6 H GGT 62 H Alkaline Phosphatase 128 H Albumin 2.7 L Globulin Albumin/Globulin Ratio 0.8 L Lipase Urine Urobilinogen Urine Bacteria Hyaline Casts 11/07/17 11/07/17 11/07/17 19:07 18:59 18:59 WBC 12.9 H RBC 4.11 L Hgb 12.1 L Hct 36.2 L RDW 14.8 H Plt Count 125 L Gran % 90.8 H Lymph % (Auto) 3.0 L Gran # 11.7 H Lymph # (Auto) 0.[address] [facility] # (Auto) PT INR VBG Lactic Acid Sodium 126 L Chloride 92 L Carbon Dioxide 18 L Glucose 112 H Calcium 8.2 L Total Bilirubin 2.0 H Direct Bilirubin GGT Alkaline Phosphatase 133 H Albumin 3.1 L Globulin 4.0 H Albumin/Globulin Ratio 0.8 L Lipase 89 H Urine Urobilinogen 4.0 A Urine Bacteria Many A Hyaline Casts 6 H 11/07/17 18:47 WBC RBC Hgb Hct RDW Plt Count Gran % Lymph % (Auto) Gran # Lymph # (Auto) [facility] # (Auto) PT INR VBG Lactic Acid 2.3 H Sodium Chloride Carbon Dioxide Glucose Calcium Total Bilirubin Direct Bilirubin GGT Alkaline Phosphatase Albumin Globulin Albumin/Globulin Ratio Lipase Urine Urobilinogen Urine Bacteria Hyaline Casts Meds: Medications Acetaminophen (Tylenol) 500 mg PO Q8HP PRN PRN Reason: PAIN/FEVER > 101 Albuterol Sulfate (Ventolin) 2.5 mg NEB Q2HP PRN PRN Reason: Shortness Of Breath Amiloride HCl (Amiloride) 10 mg PO BID [facility] Ceftriaxone Sodium (Rocephin) 2 gm IV Q24H [facility] Last Admin: 11/08/17 09:57 Dose: 2 gm Docusate Sodium (Colace) 100 mg PO BID [facility] Last Admin: 11/08/17 10:00 Dose: Not Given Ferrous Gluconate (Fergon) 324 mg [address] [facility] Last Admin: 11/08/17 09:59 Dose: 324 mg Furosemide (Lasix) 40 mg PO DAILY [facility] Glucosamine/Chondroitin (Glucosamine-Chondroitin Cap) 1 cap PO DAILY [facility] Last Admin: 11/08/17 10:00 Dose: 1 cap Heparin Sodium (Porcine) (Heparin) 5,000 unit SQ Q12 [facility] Last Admin: 11/08/17 10:01 Dose: 5,000 unit Hydromorphone HCl (Dilaudid) 0.5 mg IV Q2HP PRN PRN Reason: PAIN LEVEL > 6 Last Admin: 11/08/17 17:08 Dose: 0.5 mg Sodium Chloride (Sodium Chloride 0.9%) 1,000 mls @ 100 mls/hr IV .Q10H [facility] Stop: 11/09/17 04:14 Last Admin: 11/08/17 08:50 Dose: 100 mls/hr Naloxone HCl (Narcan) 0.1 mg IV Q2MIN PRN PRN Reason: Opiate Reversal Ondansetron HCl (Zofran) 4 mg IV Q4HP PRN PRN Reason: Nausea And Vomiting Last Admin: 11/08/17 13:34 Dose: 4 mg Pantoprazole Sodium (Protonix) 40 mg PO QAMAC [facility] Last Admin: 11/08/17 07:02 Dose: 40 mg Sodium Chloride (Saline Flush) 10 ml IV Q8 [facility] Last Admin: 11/08/17 13:35 Dose: Not Given Thiamine HCl (Vitamin B1) 200 mg PO DAILY [facility] Last Admin: 11/08/17 09:59 Dose: 200 mg Medical - PN: A/P - Time Spent With Patient Total time spent is greater than 50% in coordination of care (as documented) at patient's floor/unit and/or counseling patient: 15 - 24 minutes - Narrative A/P Narrative: SBP: Continue cephalosporin for at least 5 days. Should be discharged on Cipro 500mg daily for SBP prophylaxis. Avoid beta blockers and PPI. Inpatient care to be managed by hospitalist and patient will follow up with general GI on discharge and hepatology at [facility] when able to travel. Medical - PN: Qual - VTE Deep Vein Thrombosis/Pulmonary Embolism Present on Admission: No
[2017-11-08] MEDS: aMILoride 5 MG TABLET PO SCH (20:29)
[2017-11-09] MEDS: 0.9 % SODIUM CHLORIDE 10 ML SYRINGE IV SCH (05:19)
[2017-11-09 05:57] LABS: Basophils # (Auto) 0 K/mcL (0.0-0.3); Basophils % (Auto) 0.4 % (0.0-2.0); Eosinophils # (Auto) 0.1 K/mcL (0.0-0.7); Eosinophils % (Auto) 2.5 % (0.0-7.0); Granulocytes % (Auto) 74.4 % (38.0-78.0); Lymphocytes # (Auto) 0.4 K/mcL (1.5-4.8); Lymphocytes % (Auto) 8.9 % (15.5-49.0); Mean Cell Volume 88.9 fL (80.0-100.0); Mean Corpuscular HGB Conc 33.9 g/dL (31.0-36.0); Mean Corpuscular Hemoglobin 30.1 pg (26.0-34.0); Monocytes # (Auto) 0.6 K/mcL (0.1-0.9); Monocytes % (Auto) 13.8 % (1.0-12.0); Platelet Count 100 K/mcL (140-440); RBC 3.78 M/mcL (4.50-5.90); Red Cell Distribution Width 15.1 % (11.5-14.5)
[2017-11-09 06:09] LABS: ALT/SGPT 18 U/l (0-40); Albumin 2.5 gm/dL (3.2-5.2); Albumin/Globulin Ratio 0.8 (1.0-2.3); Alkaline Phosphatase 105 U/L (39-117); Bilirubin,Direct 0.4 mg/dL (0.0-0.3); Blood Urea Nitrogen 12 mg/dl (8-23); Gamma Glutamyl Transpeptidase 57 U/L (8-61); Uric Acid 5.2 mg/dL (2.5-8.0)
[2017-11-09] MEDS: PANTOPRAZOLE 40 MG TABLET PO SCH (07:38)
[2017-11-09] MEDS: FERROUS GLUCONATE 324 MG TABLET PO SCH (08:40)
[2017-11-09] MEDS: THIAMINE 100 MG TABLET PO SCH (08:41)
[2017-11-09] MEDS: GLUCOSAMINE/CHONDROITIN SULF A 1 CAP CAPSULE PO SCH (08:41)
[2017-11-09] MEDS: HEPARIN 5,000 UNIT/ML VIAL SQ SCH (08:41)
[2017-11-09] MEDS: aMILoride 5 MG TABLET PO SCH (08:41)
[2017-11-09] MEDS: cefTRIAXone 2 GM VIAL IV SCH (08:42)
[2017-11-09] MEDS ORDERED: VANCOMYCIN 1,500 MG in 0.9 % SODIUM CHLORIDE 500 ML IV SCH (09:00)
[2017-11-09] MEDS ORDERED: FUROSEMIDE 40 MG TABLET PO SCH (09:00)
[2017-11-09] MEDS: DOCUSATE SODIUM 100 MG CAPSULE PO SCH (09:04)
[2017-11-09] MEDS ORDERED: VANCOMYCIN PER PHARMACY IV SCH (09:42)
[2017-11-09] MEDS ORDERED: DEXTROSE 50% 50 ML VIAL IV PRN (11:52)
[2017-11-09] MEDS ORDERED: DEXTROSE 31 GM ORAL.SUSP PO PRN (11:52)
--- NOTE | 2017-11-09 13:07 | Discharge Summary ---
Medical - DS: Prov Patient information: Note initiated : 11/09/17 at 1:04 pm Service Date, if different from initiated Date: [] Patient: Grant Perea 62 y/o M admitted on 11/07/17 for Spontaneous Bacterial Peritonitis, Sepsis. Chief Complaint: [] Date of admission: 11/07/17 22:14 Discharge date: 11/09/17 Primary care physician: Hang Patterson Consults: 11/07/17 21:00 Consult to Physician [CONS] Stat Comment: Consulting Provider: Shirin Lu Reason For Exam: Physician to Consult Medical - DS: Meds - Discharge Medications Prescriptions: cefTRIAXone [Rocephin] 2 gm IV Q24H #3 vial Ciprofloxacin [Cipro] 500 mg PO DAILY #30 tab Active and Home Medications: Home Medications Furosemide [Lasix] 80 mg PO DAILY 02/09/16 [History Confirmed 11/08/17 Last Taken 11/07/17 09:00] Glucosamine Sulfate Dipot Chlr [Glucosamine] 1,000 mg PO BID 02/09/16 [History Confirmed 11/08/17 Last Taken 11/07/17 09:00] Thiamine HCl [B-1] 200 mg PO DAILY 02/09/16 [History Confirmed 11/08/17 Last Taken 11/07/17 09:00] aMILoride [Amiloride] 10 mg PO BID 02/09/16 [History Confirmed 11/08/17 Last Taken 11/07/17 09:00] metFORMIN [Glucophage] 500 mg PO BID 02/09/16 [History Confirmed 11/08/17 Last Taken 11/06/17 09:00] Ferrous Gluconate [Fergon] 324 mg PO Q48 11/08/17 [History Confirmed 11/08/17 Last Taken 11/08/17 10:00] Multivit-Min/FA/Vit K/Lycopene [Hm Mens 50+ Advanced One Daily] 1 tablet PO DAILY 11/08/17 [History Confirmed 11/08/17 Last Taken 11/07/17 09:00] Ciprofloxacin [Cipro] 500 mg PO DAILY #30 tab 11/09/17 [Rx Last Taken Unknown] cefTRIAXone [Rocephin] 2 gm IV Q24H #3 vial 11/09/17 [Rx Last Taken Unknown] Medical - DS: Hosp Hospital course: Discharge diagnosis BRIEF HOSPITAL COURSE Mr. Perea is a 62 year old Male with h/o cirrhosis ,presents to the ER from [facility]. The patient has not been feeling well since last , pain in the abdomen lower abdomen, sharp, initially intermittent, then later constant and intermittent, progressively getting worse, somewhat better with drinking soda? no other reliving factors. He admits to poor appetite and nausea during these symptoms. The patient was seen by his GI doc, and a CT scan of the abdomen was done, which showed ascitis, the patient underwent a USG guided paracentesis today which showed SBP, and the patient was sent to the ER for further evaluation. The patient denies any other complaints, he does not have afrequent ascitic taps and notes that his fluid is well controleld with diet and diuretics. The patient in the ER had WBC of 12.9, sodium 126, lact 2.3, t eveline 2.0, the patient Total neutrophil count was 5388, the patient was therefore admitted to the hospital for further management. IV rocephin given in the ER. Blood and urine cx sent, since CT Abdomen was done yesterday, usg abdomen today, repeat imaging not done, CXR chest is neg. nov 08 Patient seen examined, no acute overnight issues, patient feeling much better, able to eat breakfast, labs better, microbiology pending, by bedside, all questions answered. November 09-patient doing well. No overnight events. White count normalized to 4.5. Cultures negative so far. These at baseline and requesting discharge. Continue additional 3 days IV Rocephin followed by once a day ciprofloxacin 500 mg. Discharge instructions were discussed with patient including follow-up with GI. Hold propranolol/PPI as per GI recommendations. blood cultures coag- negative staph presumed contaminant. sodium at 134 bilirubin down from 2->0.9 discharging home Discharge diagnosis: . - Time Spent with Patient Total time spent providing and/or coordinating discharge services: Greater than 30 minutes Medical - DS: Exam - Constitutional Vitals: Vital Signs Temp Pulse Resp BP BP Pulse Ox 11/09/17 11:46 97.3 F 78 14 118/66 94 11/09/17 11:29 97.1 F 75 16 120/70 95 11/09/17 10:07 97.1 F 74 16 122/78 95 11/09/17 07:24 96.4 F L 74 16 108/70 94 11/09/17 04:00 97.9 F 66 14 128/72 93 11/08/17 23:39 97.5 F 71 12 122/68 96 11/08/17 19:07 97.7 F 80 16 132/76 93 11/08/17 15:50 97.3 F 16 128/74 93 Intake and Output 11/08/17 11/09/17 11/09/17 21:59 05:59 13:59 Intake Total 1840 / 1840 1250 / 1250 1000 / 1000 Output Total 350 / 350 350 / 350 250 / 250 Balance 1490 / 1490 900 / 900 750 / 750 Intake: IV 1000 / 1000 1000 / 1000 Sodium Chloride 0.9% 1,000 ml @ 1000 / 1000 1000 / 1000 100 mls/hr IV .Q10H [facility] Rx#: [id number] Oral 840 / 840 250 / 250 1000 / 1000 Output: Void Amount 350 / 350 350 / 350 250 / 250 Other: Meal Dinner Lunch Percent of Meal Consumed 100% 100% Feeding Ability Independent # Voids 1 # Bowel Movements 1 Weight 228 lb Medical - DS: Data Labs on day of discharge: Labs from last 24 hours 11/09/17 11/09/17 11/09/17 04:30 04:30 04:30 WBC 4.5 RBC 3.78 L Hgb 11.4 L Hct 33.6 L MCV 88.9 MCH 30.1 MCHC 33.9 RDW 15.1 H Plt Count 100 L MPV 8.9 Gran % 74.4 Lymph % (Auto) 8.9 L [place] % (Auto) 13.8 H Eos % (Auto) 2.5 Baso % (Auto) 0.4 Gran # 3.3 Lymph # (Auto) 0.4 L [place] # (Auto) 0.6 Eos # (Auto) 0.1 Baso # (Auto) 0 PT 17.6 H INR 1.4 H Sodium 134 Potassium 4.2 Chloride 100 Carbon Dioxide 21 L Anion Gap 13.0 BUN 12 Creatinine 0.7 GFR Calculation 100 Glucose 97 Uric Acid 5.2 Calcium 7.8 L Phosphorus 3.1 Magnesium 2.1 Total Bilirubin 0.9 Direct Bilirubin 0.4 H GGT 57 AST 26 ALT 18 Alkaline Phosphatase 105 Lactate Dehydrogenase 174 Total Protein 5.8 L Albumin 2.5 L Globulin 3.3 Albumin/Globulin Ratio 0.8 L Triglycerides 92 Preliminary micro results at discharge 11/07/17 18:47 Blood Culture - Preliminary Blood Coagulase negative staph 11/07/17 18:56 Blood Culture - Preliminary Blood 11/07/17 19:07 Urine Culture - Preliminary Urine - Clean Void [facility] Medical - DS: A/P - Patient/Caregiver Discharge Instructions Activity: increase activity as tolerated Diet: Low Sodium (2gm) Additional Instructions: Follow-up PCP in 5 days F/u GI as outpatient in 1 week I recommend primary care physician to check CBC CMP as a posthospital follow- up in 1 week. IV Rocephin for additional 3 days followed by ciprofloxacin 500 mg daily to continue for SBP prophylaxis hold PPI/propranolol until follow-up with GI Continue fall precaution Return to ER if worsening abdominal pain, distention, fever chills shortness of breath, diarrhea, bleeding Review risk and side effect profile of medications including antibiotics. Side effect may include mild to severe reaction including rash, diarrhea, cdiff and even which can be prevented by close follow-up with PCP and monitoring for side effects Continue low salt diet and activity as advised Discussed importance of medication adherence Please review medication list with patient prior to discharge Please schedule follow-up with PCP/Providers prior to discharge and provide printouts Portions of this chart may have been created with [employer] voice recognition software. Occasional wrong-word or ?sound-like? substitutions may have occurred due to the inherent limitations of voice recognition software. Please read the chart carefully and recognize, using context, where the substitutions have occurred. CC- PCP Prescriptions: cefTRIAXone [Rocephin] 2 gm IV Q24H #3 vial Ciprofloxacin [Cipro] 500 mg PO DAILY #30 tab - Follow up Plan Follow up with: Katherine Romero ARNP [Nurse Practitioner] - Hang Patterson MD [Primary Care Provider] - Disposition: Home, Self-Care Prognosis: Fair Rehab Potential: Fair I certify that the patient requires SNF services: No Overall status at discharge: patient is progressing back to baseline Medical - DS: Qual - VTE Deep Vein Thrombosis/Pulmonary Embolism Present on Admission: No
[2017-11-09] MEDS ORDERED: INSULIN LISPRO 1 UNIT/0.01 ML UNIT SQ SCH (17:00)
== END 2017-11-09 14:20 | disposition home or self-care (01) | DRG 871 ==
LOC: ED 18:26 → MEDSUR 22:14
PROVIDERS: ADMIT Internal Medicine; ATTEND Internal Medicine

== ENCOUNTER 2022-09-12 17:10 | Observation (INO) ==
[2022-09-12] MEDS ORDERED: KETOROLAC 60 MG/2 ML VIAL IM ONE (17:30)
--- NOTE | 2022-09-12 17:34 | Emergency Department Note ---
Lower Extremity Injury HPI General Chief Complaint: Extremity Injury, Lower Stated Complaint: left hip pain, slipped on ice Time Seen by Provider: 09/12/22 17:20 Source: patient Mode of arrival: wheelchair Limitations: no limitations History of Present Illness HPI Narrative: Narrative: 66-year-old male with a past medical history of diabetes mellitus on metformin and as below presents with sharp persistent severe 9/10 left hip pain. Pain goes away at rest but increases upon moving. Patient says that he slipped on ice and fell on his left hip. No other area of injury. No headache dizziness chest pain abdominal pain nausea vomiting diarrhea fever or chills Related Data Home Medications Medication Instructions Recorded Confirmed [id number] acid-vit 1 tab PO DAILY 11/08/17 09/12/22 K-lycop 400 mcg-20 mcg-370 mcg tablet (Men 50 Plus Advanced One Daily) glucos sul [id number]-Mn 2 cap PO QDAY 01/20/22 09/12/22 [Glucosamine Chondroitin] Previous Rx's Medication Instructions Recorded metformin 500 mg tablet 1,000 mg PO BID #360 tabs 08/11/22 hydrocodone 5 mg-acetaminophen 325 1 tab PO BID PRN pain #7 tabs 09/12/22 mg tablet hydrocodone 10 mg-acetaminophen 1 - 2 tab PO Q4H PRN Pain #60 tabs 09/13/22 325 mg tablet Allergies Allergy/AdvReac Type Severity Reaction Status Date / Time adhesive tape Allergy Severe Blister Verified 07/13/22 11:45 No Known Drug Intolerances Allergy Verified 09/12/22 21:12 iron AdvReac Mild Diarrhea Verified 07/13/22 11:45 Tomato AdvReac Mild Numbness, Verified 07/13/22 11:45 Rash Review of Systems ROS ROS Narrative: Narrative: All systems ED: reviewed and negative except as stated. Constitutional: Reports as per HPI PFSH Narrative Patient History Narrative: Narrative: Medical/Surgical/Family History All Active Problems (Updated 09/13/22 @ 05:53 by Davey Chirinos MD) History of liver cancer (Chronic) Diabetes mellitus, type II (Chronic) Alcoholic cirrhosis (Chronic) Umbilical hernia (Chronic) History of tobacco use (Chronic) Obese (Chronic) Cirrhosis of liver (Chronic) History of chemotherapy (Chronic ~2018) History of radiation therapy (Chronic ~2020) Medicare annual wellness visit, initial (Acute) Right knee pain (Acute) Systolic murmur (Chronic) Elevated PSA (Chronic) Asymptomatic microscopic hematuria (Acute) Asymptomatic bacteriuria (Acute) Callus of foot (Chronic) Abnormal TSH (Acute) Fall (Acute) Acute pain of left hip (Acute) Acetabulum fracture, left (Acute) Medical History Abnormal TSH Acute sinusitis Alcoholic cirrhosis Status post TI PS Asymptomatic bacteriuria Asymptomatic microscopic hematuria Callus of foot Cirrhosis of liver Diabetes mellitus, type II Elevated PSA Encounter for medication refill History of chemotherapy (~2018) [place] History of cirrhosis History of liver cancer History of TIPS 2017, tumor resection 10/05 History of radiation therapy (~2020) [place] History of tobacco use Quit 1992 Medicare annual wellness visit, initial Obese Right knee pain Systolic murmur Umbilical hernia Surgical History S/P TIPS (transjugular intrahepatic portosystemic shunt) (~03/19/18) [facility] Hernandes Family History Father Diabetes mellitus, type II Hypertension Social History Smoking Status: Former smoker Alcohol Intake Frequency: does not drink Substance Use: does not use Exam Narrative Narrative: Narrative: General Limitations: no limitations General appearance: Present alert and in no apparent distress Eye Eye: Present normal appearance Respiratory Respiratory: Present normal lung sounds bilaterally Cardiovascular Cardiovascular: Present regular rate, normal rhythm and normal heart sounds Adbominal Abdominal: Present soft and normal bowel sounds; Absent tenderness or organomegaly Extremities Extremities: Present other (Left hip tenderness which increases upon raising leg and Pen-[place]ee K down. No ecchymosis seen. Decreased range of motion of her left leg due to pain) Neurological Neurological: Present alert and oriented X3 Course Course Course Narrative: X-ray of the left hip was obtained. Toradol 30 mg IM was given. X-ray of the hip is negative for fracture, however patient still has severe pain. We will do CT without contrast of left hip for better evaluation. Care transferred to Dr. Chirinos Vital Signs Vital signs: Vital Signs Temperature 98.4 F 09/12/22 17:10 Pulse Rate 88 09/12/22 17:10 Respiratory Rate 20 09/12/22 17:10 Blood Pressure 138/64 09/12/22 17:10 Pulse Oximetry (%) 99 09/12/22 17:10 Oxygen Delivery Method 09/12/22 17:10 Temperature 98.6 F 09/13/22 03:23 Pulse Rate 86 09/13/22 03:23 Respiratory Rate 17 09/13/22 03:23 Blood Pressure 143/61 09/13/22 03:23 Pulse Oximetry (%) 99 09/13/22 03:23 Oxygen Delivery Method 09/13/22 03:23 MDM MDM Narrative Medical decision making narrative: Narrative: Discharge Plan Patient/Caregiver Discharge Instructions Pt seen by RESEARCH PROJECT COORDINATOR/PA only: No Clinical Impression: Fall, Acute pain of left hip Acetabulum fracture, left Qualifiers: Encounter type: initial encounter Sublocation of acetabulum: unspecified portion of acetabulum Fracture type: closed Fracture alignment: nondisplaced Qualified Code(s): S32.402A - Unspecified fracture of left acetabulum, initial encounter for closed fracture Activity: ambulate only with your walker and non-weight bearing Patient Disposition: Xfer As Outpt/Obs ([facility]) Condition: Fair Discharge Date/Time: 09/12/22 21:11 Discharge Location: [facility]
--- NOTE | 2022-09-12 18:20 | XRay Report ---
INDICATION: fall left hip pain TECHNIQUE: AP pelvis. Lateral right hip. Crosstable lateral left hip COMPARISON: None. FINDINGS: No detectable pelvic fracture. Sacrum is negative. No acute hip fracture identified. Hip joint spaces are bilaterally symmetric. Femoral heads and necks are intact. IMPRESSION: No detectable acute fracture Interpreted and Authenticated by: Caleb Orozco 09/12/22
[2022-09-12] MEDS ORDERED: HYDROmorphone 0.5 MG/0.5 ML SYRINGE IM ONE (18:30)
--- NOTE | 2022-09-12 18:53 | Cat Scan Report ---
INDICATION: L hip pain, unable to stand TECHNIQUE: Axial images through the pelvis. Sagittal and coronal reformatted images COMPARISON: Plain film examination dated 09/12/2022 FINDINGS: Nondisplaced fractures of the left inferior pubic ramus. Superior pubic ramus is intact. Nondisplaced left acetabular fracture fracture involves the anterior wall and roof. There is no displacement. Articular surface is nondisplaced without step-off. Femoral heads are negative and bilaterally symmetric. Femoral necks are negative. Sacrum is negative. No sacral fracture. Right hemipelvis is normal. Mild intrapelvic hematoma overlying the left acetabulum. IMPRESSION: 1. Nondisplaced fracture of the left inferior pubic ramus 2. Nondisplaced left acetabular fracture 3. Mild intrapelvic hematoma Interpreted and Authenticated by: Caleb Orozco 09/12/22
[2022-09-12] MEDS ORDERED: HYDROmorphone 0.5 MG/0.5 ML SYRINGE IV ONE (19:47)
[2022-09-12] MEDS: LACTATED RINGERS 1,000 ML IV SCH (20:10)
[2022-09-12] MEDS ORDERED: HYDROmorphone 0.5 MG/0.5 ML SYRINGE IV PRN (20:58)
[2022-09-12] MEDS ORDERED: HYDROcodone/APAP 5/325MG TABLET PO PRN (20:58)
[2022-09-12] MEDS ORDERED: ACETAMINOPHEN 325 MG TABLET PO PRN (20:58)
[2022-09-12] MEDS ORDERED: ONDANSETRON 4 MG/2 ML VIAL IV ONE (20:58)
[2022-09-12] MEDS ORDERED: DEXTROSE 50% 50 ML VIAL IV PRN (22:35)
[2022-09-12] MEDS ORDERED: DEXTROSE 31 GM ORAL.SUSP PO PRN (22:35)
[2022-09-12] MEDS: INSULIN LISPRO 1 UNIT/0.01 ML UNIT SQ SCH (22:44)
[2022-09-12] MEDS ORDERED: INSULIN LISPRO 1 UNIT/0.01 ML UNIT SQ ONE (22:52)
[2022-09-12] MEDS: metFORMIN 500 MG TABLET PO SCH (23:09)
--- NOTE | 2022-09-13 05:53 | Emergency Department Note ---
Course Vital Signs Vital signs: Vital Signs Temperature 98.4 F 09/12/22 17:10 Pulse Rate 88 09/12/22 17:10 Respiratory Rate 20 09/12/22 17:10 Blood Pressure 138/64 09/12/22 17:10 Pulse Oximetry (%) 99 09/12/22 17:10 Oxygen Delivery Method 09/12/22 17:10 Temperature 98.6 F 09/13/22 03:23 Pulse Rate 86 09/13/22 03:23 Respiratory Rate 17 09/13/22 03:23 Blood Pressure 143/61 09/13/22 03:23 Pulse Oximetry (%) 99 09/13/22 03:23 Oxygen Delivery Method 09/13/22 03:23 MDM MDM Narrative Medical decision making narrative: Narrative: Patient found to have left acetabular fracture and left inferior pubic rami fracture. I did speak with Dr. Toledo they are likely nonoperative injuries. He will admit the patient for pain control and therapy evaluation. Discharge Plan Patient/Caregiver Discharge Instructions Pt seen by DUMP GROUNDS CHECKER/PA only: No Clinical Impression: Fall, Acute pain of left hip, Acetabulum fracture, left Activity: non-weight bearing Patient Disposition: Xfer As Outpt/Obs ([facility]) Condition: Fair Discharge Date/Time: 09/12/22 21:11 Discharge Location: [facility]
[2022-09-13] MEDS: metFORMIN 500 MG TABLET PO SCH (07:25)
[2022-09-13] MEDS: INSULIN LISPRO 1 UNIT/0.01 ML UNIT SQ SCH ×2 (07:25→11:36)
[2022-09-13] MEDS: LACTATED RINGERS 1,000 ML IV SCH (07:25)
== END 2022-09-13 14:34 | disposition home or self-care (01) ==
LOC: ED 17:10 → MEDSUR 21:11 → INTOOBSV 21:11
PROVIDERS: ADMIT Orthopaedic Surgery; ATTEND Orthopaedic Surgery

== ENCOUNTER 2024-08-21 08:25 | Inpatient (IN) ==
[2024-08-21] MEDS ORDERED: IOPAMIDOL 100 ML BOTTLE IV ONE (08:26)
[2024-08-21 09:32] LABS: Basophils # (Auto) 0.02 K/mcL (0.00-0.30); Basophils % (Auto) 0.7 % (0.0-2.0); Eosinophils # (Auto) 0.06 K/mcL (0.00-0.70); Hemoglobin 14.6 g/dL (13.7-17.5); Lymphocytes # (Auto) 0.64 K/mcL (1.50-4.80); Lymphocytes % (Auto) 21.8 % (15.5-49.0); Mean Cell Volume 100.9 fL (80.0-100.0); Mean Corpuscular HGB Conc 33.2 g/dL (31.0-36.0); Mean Platelet Volume 10.8 fL (8.8-12.5); Monocytes # (Auto) 0.29 K/mcL (0.10-0.90); Monocytes % (Auto) 9.9 % (1.0-12.0); Neutrophils % (Auto) 65.6 % (38.0-78.0); Platelet Count 110 K/mcL (140-440); RBC 4.36 M/mcL (4.63-6.08); Red Cell Distribution Width 14.1 % (11.5-14.5); WBC 2.9 K/mcL (4.5-11.0)
[2024-08-21 09:48] LABS: INR 1.2 (0.9-1.1); Prothrombin Time 15.2 sec (11.9-14.5)
[2024-08-21 09:49] LABS: Partial Thromboplastin Time 30.7 sec (20.0-37.0)
[2024-08-21 10:22] LABS: ALT/SGPT 37 U/L (<40); AST/SGOT 80 U/L (<40); Albumin 3.5 gm/dL (3.2-5.2); Albumin/Globulin Ratio 0.9 (1.0-2.3); Alkaline Phosphatase 187 U/L (39-117); Bilirubin,Total 1.7 mg/dL (0.1-1.0); Blood Urea Nitrogen 13 mg/dL (8-23); Calcium 9.1 mg/dL (8.6-10.4); Carbon Dioxide 21 mmol/L (22-30); Chloride 107 mmol/L (96-108); Globulin 4.1 gm/dL (2.2-3.7); Glomerular Filtration Rate 95; Glucose 150 mg/dL (70-105); Potassium 3.7 mmol/L (3.3-5.1); Sodium 141 mmol/L (133-145)
[2024-08-21] MEDS: LIDOCAINE 2% URO-JET 10 ML JEL.PF.APP UR ONE (11:58)
[2024-08-21 13:57] LABS: Bilirubin,Urine Negative (Negative); Glucose,Urine (UA) >=500 mg/dL (Negative); Ketones,Urine 5 mg/dL (Negative); Leukocyte Esterase,Urine Negative /uL (Negative); Nitrate,Urine Negative (Negative); Protein,Urine >=500 mg/dL (Negative); Urine Blood 0.03 mg/dL (Negative); Urine RBC 81 /hpf (0-3); Urine Squamous Epithelial Cell 0 /hpf (0-4); Urine WBC 0 /hpf (0-4); Urobilinogen,Urine Negative
[2024-08-21 14:07] LABS: Appearance,Urine Turbid (Clear); Color,Urine Red
[2024-08-21 17:13] LABS: Basophils # (Auto) 0.02 K/mcL (0.00-0.30); Basophils % (Auto) 0.7 % (0.0-2.0); Eosinophils # (Auto) 0 K/mcL (0.00-0.70); Eosinophils % (Auto) 0 % (0.0-7.0); Hematocrit 40.1 % (40.1-51.0); Hemoglobin 13.4 g/dL (13.7-17.5); Lymphocytes # (Auto) 0.38 K/mcL (1.50-4.80); Mean Cell Volume 101.5 fL (80.0-100.0); Mean Corpuscular HGB Conc 33.4 g/dL (31.0-36.0); Mean Platelet Volume 10.6 fL (8.8-12.5); Monocytes # (Auto) 0.18 K/mcL (0.10-0.90); Monocytes % (Auto) 6.1 % (1.0-12.0); Neutrophils % (Auto) 80.2 % (38.0-78.0); Platelet Count 76 K/mcL (140-440); RBC 3.95 M/mcL (4.63-6.08); Red Cell Distribution Width 14.2 % (11.5-14.5); WBC 2.9 K/mcL (4.5-11.0)
[2024-08-21 17:26] LABS: ALT/SGPT 34 U/L (<40); AST/SGOT 68 U/L (<40); Albumin 3.3 gm/dL (3.2-5.2); Albumin/Globulin Ratio 0.9 (1.0-2.3); Alkaline Phosphatase 161 U/L (39-117); Bilirubin,Total 1.9 mg/dL (0.1-1.0); Blood Urea Nitrogen 14 mg/dL (8-23); Calcium 9.3 mg/dL (8.6-10.4); Carbon Dioxide 19 mmol/L (22-30); Chloride 110 mmol/L (96-108); Globulin 3.6 gm/dL (2.2-3.7); Glomerular Filtration Rate 95; Glucose 116 mg/dL (70-105); Potassium 4.2 mmol/L (3.3-5.1); Sodium 143 mmol/L (133-145)
[2024-08-21] MEDS ORDERED: POTASSIUM CHLORIDE 40 MEQ in DEXTROSE 5% IN WATER 500 ML IV PRN (17:34)
[2024-08-21] MEDS ORDERED: LACTULOSE 20 GM/30 ML ORAL.SOL PO PRN (17:34)
[2024-08-21] MEDS ORDERED: SENNOSIDES 1 TABLET PO PRN (17:34)
[2024-08-21] MEDS ORDERED: DEXTROSE 50% 50 ML VIAL IV PRN (17:34)
[2024-08-21] MEDS ORDERED: METOCLOPRAMIDE 10 MG/2 ML VIAL IV PRN (17:34)
[2024-08-21] MEDS ORDERED: MAGNESIUM SULFATE 2 GM/50 ML BAG IV PRN (17:34)
[2024-08-21] MEDS ORDERED: ONDANSETRON 4 MG/2 ML VIAL IV PRN (17:34)
[2024-08-21] MEDS ORDERED: POTASSIUM CHLORIDE 20 MEQ TABLET PO PRN ×2 (17:34)
[2024-08-21] MEDS ORDERED: DEXTROSE 31 GM ORAL.SUSP PO PRN (17:34)
[2024-08-21] MEDS ORDERED: IPRATROPIUM/ALBUTEROL 3 ML AMPUL.NEB NEB PRN (17:34)
[2024-08-21] MEDS: INSULIN LISPRO 1 UNIT/0.01 ML UNIT SQ SCH (18:14)
[2024-08-21] MEDS: 0.9 % SODIUM CHLORIDE 10 ML SYRINGE IV SCH (19:08)
[2024-08-21] MEDS: DOCUSATE SODIUM 100 MG CAPSULE PO SCH (21:16)
[2024-08-21] MEDS: RIFAXIMIN 550 MG TABLET PO SCH (21:16)
[2024-08-21] MEDS: LACTULOSE 20 GM/30 ML ORAL.SOL PO SCH (21:16)
[2024-08-22 06:25] LABS: Basophils # (Auto) 0.02 K/mcL (0.00-0.30); Basophils % (Auto) 0.5 % (0.0-2.0); Eosinophils # (Auto) 0.05 K/mcL (0.00-0.70); Eosinophils % (Auto) 1.3 % (0.0-7.0); Hematocrit 35.3 % (40.1-51.0); Hemoglobin 11.7 g/dL (13.7-17.5); Lymphocytes # (Auto) 0.46 K/mcL (1.50-4.80); Lymphocytes % (Auto) 11.7 % (15.5-49.0); Mean Cell Volume 102.3 fL (80.0-100.0); Mean Corpuscular HGB Conc 33.1 g/dL (31.0-36.0); Mean Platelet Volume 11.2 fL (8.8-12.5); Monocytes # (Auto) 0.37 K/mcL (0.10-0.90); Monocytes % (Auto) 9.4 % (1.0-12.0); Neutrophils % (Auto) 77.1 % (38.0-78.0); Platelet Count 69 K/mcL (140-440); RBC 3.45 M/mcL (4.63-6.08); Red Cell Distribution Width 14.3 % (11.5-14.5); WBC 3.9 K/mcL (4.5-11.0)
[2024-08-22 06:38] LABS: ALT/SGPT 28 U/L (<40); AST/SGOT 56 U/L (<40); Albumin 2.9 gm/dL (3.2-5.2); Albumin/Globulin Ratio 0.9 (1.0-2.3); Alkaline Phosphatase 134 U/L (39-117); Bilirubin,Direct 0.7 mg/dL (<0.3); Bilirubin,Total 1.4 mg/dL (0.1-1.0); Blood Urea Nitrogen 16 mg/dL (8-23); Calcium 8.7 mg/dL (8.6-10.4); Carbon Dioxide 21 mmol/L (22-30); Chloride 111 mmol/L (96-108); Globulin 3.1 gm/dL (2.2-3.7); Glomerular Filtration Rate 95; Glucose 115 mg/dL (70-105); Lactate Dehydrogenase 176 U/L (135-225); Phosphorous 3.4 mg/dL (2.5-4.5); Potassium 3.9 mmol/L (3.3-5.1); Sodium 143 mmol/L (133-145); Triglycerides 85 mg/dL (<150); Uric Acid 3.5 mg/dL (2.5-8.0)
[2024-08-22 09:30] LABS: Hemoglobin A1C 6.2 % Hgb (4.0-6.0)
[2024-08-22] MEDS: ACETAMINOPHEN 325 MG TABLET PO PRN (10:15)
[2024-08-22] MEDS ORDERED: KETAMINE 50 MG/ML Syringe IV ONE (14:34)
[2024-08-22] MEDS ORDERED: PROPOFOL 200 MG/20 ML VIAL IV ONE (14:34)
[2024-08-22] MEDS ORDERED: ONDANSETRON 4 MG/2 ML VIAL ONE (14:35)
[2024-08-22] MEDS ORDERED: DEXAMETHASONE 10 MG/ML VIAL ONE (14:35)
[2024-08-22] MEDS ORDERED: GLYCOPYRROLATE 0.2 MG/ML VIAL IV ONE (14:35)
[2024-08-22] MEDS ORDERED: LIDOCAINE 2% PF 5 ML VIAL ONE (14:35)
[2024-08-22] MEDS: ceFAZolin 2 GM in DEXTROSE 5% IN WATER 50 ML IV SCH (15:00)
[2024-08-22] MEDS ORDERED: HYDROmorphone 0.5 MG/0.5 ML SYRINGE ONE (15:17)
[2024-08-22] MEDS ORDERED: fentaNYL 100 MCG/2 ML VIAL ONE (15:19)
[2024-08-22] MEDS: LIDOCAINE 2% URO-JET 10 ML JEL.PF.APP UR ONE (15:26)
[2024-08-22] MEDS ORDERED: NALOXONE HCL 0.4 MG/ML VIAL IV PRN (15:27)
[2024-08-22] MEDS ORDERED: IPRATROPIUM/ALBUTEROL 3 ML AMPUL.NEB NEB PRN (15:27)
[2024-08-22] MEDS ORDERED: fentaNYL 100 MCG/2 ML VIAL IV PRN (15:27)
[2024-08-22] MEDS ORDERED: ONDANSETRON 4 MG/2 ML VIAL IV PRN (15:27)
[2024-08-22] MEDS: METHOCARBAMOL 1,000 MG/10 ML VIAL IV ONE (15:58)
[2024-08-22] MEDS: HYDROmorphone 0.5 MG/0.5 ML SYRINGE IV PRN (16:13)
[2024-08-22] MEDS: TOLTERODINE 2 MG CAP.XL.24H PO SCH ×2 (16:40→17:22)
[2024-08-22] MEDS: METHOCARBAMOL 1,000 MG/10 ML VIAL ONE (17:22)
[2024-08-22] MEDS: LACTATED RINGERS 1,000 ML IV SCH (17:37)
[2024-08-23 06:20] LABS: Basophils # (Auto) 0.01 K/mcL (0.00-0.30); Basophils % (Auto) 0.2 % (0.0-2.0); Eosinophils # (Auto) 0 K/mcL (0.00-0.70); Eosinophils % (Auto) 0 % (0.0-7.0); Hematocrit 34.7 % (40.1-51.0); Hemoglobin 11.8 g/dL (13.7-17.5); Lymphocytes # (Auto) 0.45 K/mcL (1.50-4.80); Lymphocytes % (Auto) 6.9 % (15.5-49.0); Mean Cell Volume 101.5 fL (80.0-100.0); Mean Platelet Volume 10.5 fL (8.8-12.5); Monocytes # (Auto) 0.38 K/mcL (0.10-0.90); Monocytes % (Auto) 5.8 % (1.0-12.0); Neutrophils % (Auto) 86.8 % (38.0-78.0); Platelet Count 91 K/mcL (140-440); RBC 3.42 M/mcL (4.63-6.08); Red Cell Distribution Width 14.1 % (11.5-14.5); WBC 6.5 K/mcL (4.5-11.0)
[2024-08-23 07:00] LABS: ALT/SGPT 26 U/L (<40); AST/SGOT 47 U/L (<40); Albumin/Globulin Ratio 0.9 (1.0-2.3); Alkaline Phosphatase 136 U/L (39-117); Bilirubin,Direct 0.6 mg/dL (<0.3); Bilirubin,Total 1.2 mg/dL (0.1-1.0); Blood Urea Nitrogen 19 mg/dL (8-23); Carbon Dioxide 20 mmol/L (22-30); Chloride 107 mmol/L (96-108); Globulin 3.4 gm/dL (2.2-3.7); Glomerular Filtration Rate 95; Glucose 188 mg/dL (70-105); Lactate Dehydrogenase 177 U/L (135-225); Phosphorous 3.5 mg/dL (2.5-4.5); Potassium 4.5 mmol/L (3.3-5.1); Sodium 137 mmol/L (133-145); Triglycerides 87 mg/dL (<150); Uric Acid 3.7 mg/dL (2.5-8.0)
== END 2024-08-23 12:10 | disposition home or self-care (01) | DRG 663 ==
LOC: ED 08:25 → ICU 17:22
PROVIDERS: ADMIT Internal Medicine; ATTEND Internal Medicine